=== PATIENT | male | born 1975 | race Asian ===

== ENCOUNTER 2024-05-24 20:26 | Emergency (ER) | payer SELFPAY ==
[2024-05-24 20:36] VITALS: BP 138/84
--- NOTE | 2024-05-24 20:40 | ED.GENMED ---
ED Provider Triage
<Kaleb Nolen PA-C - Last Filed: 05/24/24 20:43>
-
Patient seen by provider in Triage?: Seen in Triage
Attestation: A medical screening examination has been initiated by a qualified medical provider. Based on the assessment performed at this time, it has been determined that an emergent medical condition may exist and the patient has been informed
that further medical evaluation and possible additional diagnostic testing may be needed.
HPI: Patient slipped and fell on ice approximately 2 hours ago. No recollection of the event, unknown loss consciousness. Since that time patient has had gradually worsening headache and nausea but no vomiting. No use of anticoagulants. Did not
take any medications prior to arrival. CT of the head and cervical spine ordered. Cervical collar placed. Patient being brought to CT for further evaluation.
GENERAL: Alert , in no apparent distress
EYE: No visual abnormalities.
NECK: Trachea midline
ENT: No visible abnormalities.
LUNGS: No acute respiratory distress
NEUROLOGICAL: Alert and oriented
SKIN: Skin intact. No visible changes.
MUSCULOSKELETAL: Moving extremities normally
PSYCH: Normal and appropriate interaction.
This is a medical evaluation conducted in person to initiate diagnostic evaluation and provide initial therapeutics. Please see further documentation by the treating clinician.
History of Present Illness
<Kaleb Nolen PA-C - Last Filed: 05/24/24 20:43>
General
Chief Complaint: Fall
Time Seen by Provider: 05/24/24 23:22
<BLADIMIR Sanchez - Last Filed: 05/25/24 00:13>
General
Source: patient and hat designer (Uncle)
Exam Limitations: none
History of Present Illness
History of Present Illness:
This is a 48 year old male that comes in with c/o slipping on the ice and hitting his head. Patient uncle is translating for patient. 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 States that he slipped on the ice and fell.
States that he doesn't remember what happened. States that he does not remember how long he was down but he was able to get up and walk back into the restaurant. States that he was a little nauseated at first but this is gone and he had a headache
with some dizziness but this has also passed. Patient is also starting to remember what happened. Denies any fever, chills, chest pain, SOB, abd pain, vomiting, diarrhea.
Past History
<BLADIMIR Sanchez - Last Filed: 05/25/24 00:13>
Past History
ED Past Medical History: None; Negative Asthma, HTN, Hypercholesterolemia or NIDDM
ED Past Surgical History: None
Social History
Tobacco: Non-smoker
Alcohol: Occasional
Personal:
Living: with family
Employment: Employed
Review of Systems
<BLADIMIR Sanchez - Last Filed: 05/25/24 00:13>
Review of Systems
All Other Systems: ROS reviewed and negative except as documented in HPI and ROS
Constitutional: Reports no symptoms; Denies fever or chills
EENT: Reports no symptoms
Respiratory: Reports no symptoms; Denies cough or trouble breathing
Cardiac: Reports no symptoms; Denies chest pain
ABD/GI: Reports nausea; Denies abdominal pain, vomiting or diarrhea
: Reports no symptoms; Denies dysuria, frequency or urgency
Musculoskeletal: Reports no symptoms
Skin: Reports no symptoms
Neurological: Reports dizzy (Earlier but gone) and headache (Earlier but gone)
Psychiatric: Reports no symptoms
Phy Exam
<BLADIMIR Sanchez - Last Filed: 05/25/24 00:13>
General Physical Exam
General Presentation: well appearing and no apparent distress
General age: appears stated age
General Skin: warm and dry
General Habitus: normal
General Mental: alert
General Hydration: appears well hydrated
ENT Exam
ENT Exam: TM's normal, pharynx normal and neck supple
Eye Exam
Eye Exam: EOMI
Cardiovascular Exam
Cardiovascular Exam: regular rate/rhythm, no edema, no murmur and normal peripheral pulses
Pulmonary Exam
Pulmonary Exam: lungs clear, no respiratory distress, no rales, chest non tender, no crackles, no rhonchi, no wheezing and no cough
Gastrointestinal Exam
Gastrointestinal Exam: normal bowel sounds, non tender, soft, no organomegaly, no pulsatile mass and non distended
Musculoskeletal Exam
Musculoskeletal Exam: full ROM, no edema and other (Negative cervical or shoulder tenderness, Tenderness of the buttock area with palpation lateral to the spine)
Skin Exam
Skin Exam: normal color, warm/dry, no rash and no petechia
Psychiatric Exam
Psychiatric Exam: normal mood/affect
Course
<Kaleb Nolen PA-C - Last Filed: 05/24/24 20:43>
Orders/Labs/Results
Orders:
Orders
05/24/24 20:41
CT Cervical Spine W/o Iv Contr Urgent
Comment:
Reason For Exam: fall, LOC, vomiting
CT Head W/o Iv Contrast Urgent
Comment:
Reason For Exam: fall, vomiting, LOC
Vital Signs
Initial and Last Documented VS:
Initial Vital Signs
Temp Pulse Resp BP Pulse Ox
97.8 F 72 18 138/84 100
05/24/24 20:36 05/24/24 20:36 05/24/24 20:36 05/24/24 20:36 05/24/24 20:36
Last Documented Vital Signs
Temp Pulse Resp BP Pulse Ox
97.8 F 72 18 138/84 100
05/24/24 20:36 05/24/24 20:36 05/24/24 20:36 05/24/24 20:36 05/24/24 20:36
<BLADIMIR Sanchez - Last Filed: 05/25/24 00:13>
Orders/Labs/Results
Orders:
Orders
05/24/24 20:41
CT Cervical Spine W/o Iv Contr Urgent
Comment:
Reason For Exam: fall, LOC, vomiting
CT Head W/o Iv Contrast Urgent
Comment:
Reason For Exam: fall, vomiting, LOC
Vital Signs
Initial and Last Documented VS:
Initial Vital Signs
Temp Pulse Resp BP Pulse Ox
97.8 F 72 18 138/84 100
05/24/24 20:36 05/24/24 20:36 05/24/24 20:36 05/24/24 20:36 05/24/24 20:36
Last Documented Vital Signs
Temp Pulse Resp BP Pulse Ox
97.8 F 72 18 138/84 100
05/24/24 20:36 05/24/24 20:36 05/24/24 20:36 05/24/24 20:36 05/24/24 20:36
<BLADIMIR Sanchez - Last Filed: 05/25/24 00:13>
MDM/Problems Addressed
Differential Diagnosis Includes:
Accidental fall
MDM/Problems Addressed:
This is a 48 year old male that comes in with c/o falling on the ice.
CT of the head and neck was done. Patient was seen by Dr. Yanes. REviewed CT scan. Patient has no spinal tenderness with palpation. Will discharge home.
Chronic conditions affecting care:
NA
Acute Exacerbation and/or Progression of Chronic Illness:
NA
<BLADIMIR Sanchez - Last Filed: 05/25/24 00:13>
*Pulse Oximetry
Patient hypoxic: no
*EKG
Interpreted by ED Provider?: NA
Rate: EKG- N/A
*Team Lead Interpretation
Rate: Team Lead- N/A
*Critical Care Note
Total Time (30-74mins, 75-104mins- exclusive of procedures): Not Applicable
ED Attending Note
<Kaleb Nolen PA-C - Last Filed: 05/24/24 20:43>
-
Portions of this chart may have been created with voice recognition software.� Occasional wrong word or��sound alike� substitutions may have occurred due to the inherent limitations of voice recognition software.
Discharge Plan
Departure
Patient Disposition: Home (Routine Discharge)
Date of Disposition: 05/25/24
Time of Disposition: 00:08
Patient with high blood pressure during this ER visit?: Yes
Condition: Good
Covid-19: Not Applicable
Discharge Problem:
Accidental fall
Instructions: Preventing falls in adults, BLOOD PRESSURE
Referrals:
NONE,* [Family Provider] -
Activity Restrictions/Additional Instructions:
As discussed, your CT of the head and cervical spine is negative for any acute process. Please use ice to any area that is sore. You may also use Tylenol as needed for any headache pain. Follow up with the family doctor as needed. IF YOU HAVE
VOMITING MORE THEN TWICE, HEADACHE NOT RELIEVED BY TYLENOL OR YOU HAVE ANY OTHER CONCERNS PLEASE RETURN TO THE EMERGENCY ROOM.
Interventions
Interventions:
*General Assessment Last Done: 05/24/24 20:42
Discharge Date and Time
Print Language: RWANDAN
== END 2024-05-25 00:20 | disposition home or self-care (01) ==
LOC: EMR 20:26
PROVIDERS: EMERGENCY PHYSICIAN Emergency Medicine
DX: S09.90XA Unspecified injury of head, initial encounter (principal); W00.0XXA Fall on same level due to ice and snow, initial encounter
CPT/HCPCS: 99284; 70450; 72125

== ENCOUNTER 2024-05-29 11:30 | Emergency (ER) | payer OTHER, SELFPAY ==
[2024-05-29 11:40] VITALS: BP 134/87
[2024-05-29 11:59] LABS: % Eosinophils 4.9 % (0-6); % Lymphocytes 39.1 % (20.5-51.1); % Monocytes 9.7 % (1.7-9.3); % Neutrophils 45.3 % (42.2-75.2); Absolute Basophils 0.1 10^3/uL (0-0.2); Absolute Eosinophils 0.3 10^3/uL (0-0.7); Absolute Lymphocytes 2.3 10^3/uL (1.2-3.4); Absolute Monocytes 0.6 10^3/uL (0.1-0.6); Absolute Neutrophils 2.6 10^3/uL (1.4-6.5); Hematocrit 51.2 % (39.0-52.0); Hemoglobin 16.8 g/dL (13.0-18.0); Mean Corp Hgb Conc. 32.8 g/dL (33.0-37.0); Mean Corpuscular Hgb 28.9 pg (27.0-31.0); Mean Platelet Volume 10.5 fL (7.4-10.4); Nucleated Red Blood Cells % 0 % (-); Platelet Count 180 10^3/uL (130-400); Red Blood Cell Count 5.82 10^6/uL (4.70-6.10); Red Cell Dist. Width 12.4 % (11.5-14.5); White Blood Cell Count 5.8 10^3/uL (4.8-10.8)
[2024-05-29 12:13] LABS: ALT (SGPT) 38 U/L (0-50); AST (SGOT) 28 U/L (17-59); Albumin 5.3 g/dl (3.5-5.0); Alkaline Phosphatase 77 U/L (38-126); Blood Urea Nitrogen 11 mg/dl (9-20); Carbon Dioxide 32 mmol/L (22-30); Chloride 100 mmol/L (98-107); Glucose 101 mg/dl (70-99); Potassium 4.9 mmol/L (3.5-5.1); Sodium 142 mmol/L (135-145); Total Bilirubin 0.8 mg/dl (0.2-1.3); Total Protein 9.6 g/dl (6.3-8.2); eGFR > 60.00
--- NOTE | 2024-05-29 15:53 | ED.GENMED ---
History of Present Illness
<Brigitte Brasher PA-C - Last Filed: 05/29/24 22:04>
General
Chief Complaint: Dizziness
Source: patient
Exam Limitations: none
Time Seen by Provider: 05/29/24 15:30
Nursing documentation reviewed up to this point in time: agreed with
History of Present Illness
History of Present Illness:
This is a 48-year-old male with no past medical history who presents to the emergency department today with concerns of dizziness and vertigo. He has been having these symptoms for the past 2 days. He noticed that the symptoms come on when he
stands up or changes position. That is when symptoms are worse but at rest he notes a mild lightheadedness. 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 Denies any visual changes headache, neck pain. He describes the symptoms
as feeling as if the floor is uneven and describes a general sense of disequilibrium. He also notes intermittent nausea as well. Of note, around a week ago, he slipped and fell on the snow and injured his head and lost consciousness. He has
anterior neck pain. He denies any chest pain or shortness of breath. He also notes that he has had episodes of short-term memory loss which has concerned him. He is not take any blood thinners
Past History
<Brigitte Brasher PA-C - Last Filed: 05/29/24 22:04>
Past History
ED Past Medical History: None; Negative Asthma, HTN, Hypercholesterolemia or NIDDM
ED Past Surgical History: None
Social History
Tobacco: Non-smoker
Alcohol: Occasional
Personal:
Living: with family
Employment: Employed
Review of Systems
<Brigitte Brasher PA-C - Last Filed: 05/29/24 22:04>
Review of Systems
All Other Systems: ROS reviewed and negative except as documented in HPI and ROS
Phy Exam
<OTIS Stein Last Filed: 05/29/24 22:04>
Physical Exam
Physical Exam:
General: Patient is well appearing and in no acute distress; non-toxic
Skin: Warm and dry, no rashes or lesions
Head: Normocephalic, atraumatic
Eyes: Sclera non-icteric. EOMs intact. No nystagmus.
Ears: Myles-Hallpike elicits symptoms but does not elicit any nystagmus.
Cardiac: Regular rate and rhythm, no murmurs
Pulm: Normal respiratory effort
Abdomen: No abdominal tenderness to palpation.
Neuro: CN II-XII intact, no focal neurologic deficits. Normal [id number]-[id number], [id number].
Psychiatric: Appropriate mood and affect.
Course
<Brigitte Brasher PA-C - Last Filed: 05/29/24 22:04>
Orders/Labs/Results
Orders:
Orders
05/29/24 11:43
Electrocardiogram (*1) Urgent
Reason for Study: Vertigo / Dizzy
EKG- Treatment ONCE
05/29/24 11:52
Complete Blood Count/With Diff Urgent
Comprehensive Metabolic Panel Urgent
05/29/24 16:15
CT Head & Neck Angio W/wo IV Urgent
Comment:
Reason For Exam: right anterior neck pain, dizziness, head trauma
05/29/24 18:15
Meclizine [Antivert] 25 mg PO NOW STA
Abnormal Lab Results
05/29/24
11:52
MCHC 32.8 L g/dL
(33.0-37.0)
MPV 10.5 H fL
(7.4-10.4)
Monocytes % 9.7 H %
(1.7-9.3)
Carbon Dioxide 32 H mmol/L
(22-30)
Glucose 101 H mg/dl
(70-99)
Total Protein 9.6 H g/dl
(6.3-8.2)
Albumin 5.3 H g/dl
(3.5-5.0)
05/29/24 11:52
05/29/24 11:52
Vital Signs
Initial and Last Documented VS:
Initial Vital Signs
Temp Pulse Resp BP Pulse Ox
97.4 F 83 16 134/87 99
05/29/24 11:40 05/29/24 11:40 05/29/24 11:40 05/29/24 11:40 05/29/24 11:40
Last Documented Vital Signs
Temp Pulse Resp BP Pulse Ox
98 F 63 16 139/86 97
05/29/24 18:05 05/29/24 18:05 05/29/24 19:13 05/29/24 18:05 05/29/24 19:13
<Rojas Chamorro, DO - Last Filed: 05/29/24 18:53>
Orders/Labs/Results
Orders:
Orders
05/29/24 11:43
Electrocardiogram (*1) Urgent
Reason for Study: Vertigo / Dizzy
EKG- Treatment ONCE
05/29/24 11:52
Complete Blood Count/With Diff Urgent
Comprehensive Metabolic Panel Urgent
05/29/24 16:15
CT Head & Neck Angio W/wo IV Urgent
Comment:
Reason For Exam: right anterior neck pain, dizziness, head trauma
05/29/24 18:15
Meclizine [Antivert] 25 mg PO NOW STA
Abnormal Lab Results
05/29/24
11:52
MCHC 32.8 L g/dL
(33.0-37.0)
MPV 10.5 H fL
(7.4-10.4)
Monocytes % 9.7 H %
(1.7-9.3)
Carbon Dioxide 32 H mmol/L
(22-30)
Glucose 101 H mg/dl
(70-99)
Total Protein 9.6 H g/dl
(6.3-8.2)
Albumin 5.3 H g/dl
(3.5-5.0)
05/29/24 11:52
05/29/24 11:52
Vital Signs
Initial and Last Documented VS:
Initial Vital Signs
Temp Pulse Resp BP Pulse Ox
97.4 F 83 16 134/87 99
05/29/24 11:40 05/29/24 11:40 05/29/24 11:40 05/29/24 11:40 05/29/24 11:40
Last Documented Vital Signs
Temp Pulse Resp BP Pulse Ox
98 F 63 16 139/86 97
05/29/24 18:05 05/29/24 18:05 05/29/24 19:13 05/29/24 18:05 05/29/24 19:13
[place];Brigitte Brasher PA-C - Last Filed: 05/29/24 22:04>
MDM/Problems Addressed
Differential Diagnosis Includes:
BPPV, vestibular neuritis, post-concussive syndrome, tensinon headache, posterior circulation stroke
MDM/Problems Addressed:
48-year-old male with no past medical history presents emergency department today with anterior neck pain, dizziness, and headache following a fall a week ago. Patient symptom started 2 days ago but he did have significant head trauma a week ago
with initial CAT scan negative however did have loss of consciousness with this mechanism. On physical exam he is well-appearing in no acute distress he has no focal neurologic deficits and no dysmetria. He has no nystagmus, is symptomatic with
Myles-Hallpike however does not elicit nystagmus. He was sent for a CAT scan angio of the head and neck which was negative for any vessel dissection or clot. On reassessment, patient is still symptomatic, mildly improved with meclizine. Did suggest
follow up with vestibular therapy and a few days of meclizine. Suspect benign vertigo or post concussive syndrome considering patients are very positional. Patient stable for discharge.
<Brigitte Brasher PA-C - Last Filed: 05/29/24 22:04>
*Pulse Oximetry
Patient hypoxic: no
*Critical Care Note
Total Time (30-74mins, 75-104mins- exclusive of procedures): Not Applicable
Data Reviewed
Review of Other/Old Records Reveals: Records (reviewed ER physician documentation from 05/24/24 when patient fell) and Discharge Summary (no d/c to review )
Source: patient and records
<Brigitte Brasher PA-C - Last Filed: 05/29/24 22:04>
Patient Management
Escalation/DeEscalation of care consider admission/obs:
patient stable for discharge
case reviewed with my attending
ED Attending Note
<Brigitte Brasher PA-C - Last Filed: 05/29/24 22:04>
-
Portions of this chart may have been created with voice recognition software.� Occasional wrong word or��sound alike� substitutions may have occurred due to the inherent limitations of voice recognition software.
<Rojas Chamorro DO - Last Filed: 05/29/24 18:53>
ED Attending Note
Patient seen and examined by attending physician: Yes
I performed the substantive portion of visit, reviewed & personally made and approve the management plan that is documented in note by myself or ISAC.: Yes
Discharge Plan
Departure
Patient Disposition: Home (Routine Discharge)
Date of Disposition: 05/29/24
Time of Disposition: 19:06
Patient with high blood pressure during this ER visit?: Yes
Condition: Good
Discharge Problem:
Vertigo, Post concussion syndrome
Instructions: Vertigo (a Type of Dizziness) (DC), Dizziness, BLOOD PRESSURE
Prescriptions:
New
meclizine 25 mg tablet
25 mg PO QID Qty: 10 0RF
Referrals:
Tirso Nieves MD [Family Provider] -
Activity Restrictions/Additional Instructions:
Your CTA of the head and neck was negative for any acute vascular pathology negative for carotid stenosis, negative for bleeding.
Please call your primary care provider and schedule a follow up appointment in one week for reassessment.
Meclizine has been sent to your pharmacy. You can take 1 tablet every 6 hours as needed for dizziness.
Please call [phone] to schedule an appointment to see vestibular physical therapy.
PLEASE RETURN TO THE EMERGENCY DEPARTMENT SHOULD YOU DEVELOP CHEST PAIN, SHORTNESS OF BREATH, SYNCOPAL EPISODES, INABILITY TO AMBULATE, INTRACTABLE NAUSEA AND VOMITING, VISUAL LOSS, OT ANY OTHER SIGNS OR SYMPTOMS CONCERNING TO YOU.
Interventions
Interventions:
*Risk Screen - Suicide Last Done: 05/29/24 11:40
*General Assessment Last Done: 05/29/24 11:40
*Neglect/Abuse Screening Last Done: 05/29/24 11:40
ED- Fall Risk Assessment Last Done: 05/29/24 16:01
*ED COVID-19 Vaccine History Last Done: 05/29/24 11:40
*Nursing Disposition Last Done: 05/29/24 19:10
ED- Neurological Assessment Last Done: 05/29/24 16:01
ED- Cardiac Assessment Last Done: 05/29/24 16:01
ED Swallowing Screen Last Done: 05/29/24 16:48
Discharge Date and Time
Discharge Date/Time: 05/29/24 19:16
Print Language: SETSWANA
[2024-05-29 16:00] VITALS: BP 134/86
[2024-05-29 16:04] VITALS: BP 134/86; BP 138/88; BP 142/99; PULSE 69; PULSE 73; PULSE 80
[2024-05-29 18:05] VITALS: BP 139/86
[2024-05-29] MEDS: ANTIVERT 25 MG PO (18:34)
== END 2024-05-29 19:16 | disposition home or self-care (01) ==
LOC: EMR 11:30
PROVIDERS: Emergency Medicine; EMERGENCY PHYSICIAN Emergency Medicine
DX: R42 Dizziness and giddiness (principal); F07.81 Postconcussional syndrome; R03.0 Elevated blood-pressure reading, without diagnosis of hypertension
CPT/HCPCS: 99285; 70496; 70498; 80053; 85025; 93005; Q9967